=== PATIENT | male | born 1980 | race Caucasian/White ===

== ENCOUNTER 2017-10-16 18:37 | Emergency (ER) | payer BC ==
[~2017-10-16] VITALS: Ht 188 cm; Wt 122.5 kg
[2017-10-16 19:46] VITALS: BP 130/70
== END 2017-10-16 19:41 | disposition home or self-care (01) ==
LOC: FSED 18:37
DX: M54.5 Low back pain (principal); S39.012A Strain of muscle, fascia and tendon of lower back, initial encounter
CPT/HCPCS: 81003; 99281